=== PATIENT | male | born 1955 | race Caucasian/White ===

== ENCOUNTER 2018-08-05 07:44 | Outpatient (CLI) | payer OTHER ==
[2018-08-05] MEDS ORDERED: Iopamidol 370 76% 100 ML VIAL ONE (09:00)
--- NOTE | 2018-08-05 10:56 | CT ---
CT ABDOMEN AND PELVIS WITH IV CONTRAST: Date: 08/05/18 HISTORY: Lymphadenopathy. Elevated PSA (5.28 on 04/24/18). Negative prostate biopsy from 12/12/17. FINDINGS: Correlation made with MRI pelvis of 06/18/18. There is a calcified granuloma in the right lung base.There are a few tiny capsular calcifications in the spleen. The liver, pancreas, adrenal glands, and kidneys are normal. There are parapelvic cysts in the left kidney. No free air, free fluid, or lymphadenopathy seen. The largest left paraaortic lym ph node measures 8.0 mm. Prominent left inguinal lymph nodes are seen, measuring 1.5 cm on the right and 1.0 cm on the left. There are vascular calcifications without evidence of aneurysmal dilatation o f the abdominal aorta. No free air or free fluid is seen in the abdomen or pelvis. The prostate is en larged. There is sigmoid diverticulosis. There are mild degenerative changes in the spine. IMPRESSION: 1. 8.0 mm left paraaortic lymph node, 1.5 cm right inguinal lymph node, and a 1.0 cm left inguinal l ymph node. 2. Sigmoid diverticulosis. 3. Prostatic enlargement. POS: [facility]
== END 2018-08-05 07:45 | disposition home or self-care (01) ==
LOC: NAV CT 07:44
PROVIDERS: ATTEND Urology
DX: Z01.812 Encounter for preprocedural laboratory examination (principal); R59.1 Generalized enlarged lymph nodes; K57.30 Diverticulosis of large intestine without perforation or abscess without bleeding; N40.0 Benign prostatic hyperplasia without lower urinary tract symptoms
CPT/HCPCS: 74177

== ENCOUNTER 2018-11-28 09:40 | Outpatient (CLI) | payer BC, OTHER ==
[2018-11-28 11:41] LABS: #Eosinphils 0.1 thou/uL (0.0-0.7); #Lymphocytes 1.7 thou/uL (1.20-3.40); #Monocytes 0.5 thou/uL (0.11-0.59); #Neutrophils 3.5 thou/uL (1.40-6.50); %Basophils 0.4 % (0.0-1.0); %Lymphocytes 28.8 % (21.0-51.0); %Monocytes 8.4 % (0.0-10.0); %Neutrophils 60.5 % (42.0-75.0); Hemoglobin 15.6 g/dL (14.0-18.0); Mean Corpuscular HGB CONC 33.3 g/dL (32.0-36.0); Mean Corpuscular Hemoglobin 29.9 pg (27.0-31.0); Mean Corpuscular Volume 89.9 fL (78.0-98.0); Mean Platelet Volume 8.1 fL (7.4-10.4); Platelet Count 214 thou/uL (130-400); RBC Distribution Width 11.6 % (11.5-14.5); Red Blood Cell (RBC) Count 5.21 mill/uL (4.70-6.10); White Blood Cell (WBC) Count 5.8 thou/uL (4.8-10.8)
[2018-11-28 11:53] LABS: ALT (SGPT) 20 U/L (8-55); AST (SGOT) 20 U/L (5-34); Albumin 4.4 g/dL (3.4-4.8); Alkaline Phosphatase 57 U/L (40-150); Anion Gap 13 mmol/L (10-20); BUN (Urea Nitrogen) 15 mg/dL (8.4-25.7); Bilirubin, Total 0.5 mg/dL (0.2-1.2); Calc. Creatinine Clearance 0 mL/min (70-130); Calcium 9.9 mg/dL (7.8-10.44); Carbon Dioxide 29 mmol/L (23-31); Chloride 102 mmol/L (98-107); Estimated GFR-MDRD 74; Globulin 2.7 g/dL (2.4-3.5); Glucose 107 mg/dL (80-115); Protein, Total 7.1 g/dL (5.8-8.1); Sodium 140 mmol/L (136-145)
== END 2018-11-28 09:41 | disposition home or self-care (01) ==
LOC: NAV LAB 09:40
PROVIDERS: ATTEND Nurse Practitioner Adult Health
DX: R10.2 Pelvic and perineal pain (principal)
CPT/HCPCS: 80053; 85025; 87086

== ENCOUNTER 2019-07-26 09:01 | Outpatient (CLI) | payer BC ==
[2019-07-26 15:02] LABS: Bacteria/HPF None Seen HPF (None Seen); Bilirubin Negative (Negative); Blood, Urine Negative (Negative); Clarity Clear (Clear); Glucose, Urine (Dipstick) Normal (Negative); Leukocyte Negative Leu/uL (Negative); Nitrite Negative (Negative); Protein, Urine (Dipstick) Negative (Neg-Trace); RBC/HPF 0-3 HPF (0-3); Squamous Epithelial None Seen HPF (0-3); Urobilinogen Normal mg/dL (Less than 2); WBC/HPF 0-3 HPF (0-3)
== END 2019-07-26 09:02 | disposition home or self-care (01) ==
LOC: NAV LABSP 09:01
PROVIDERS: ATTEND Urology
DX: H93.19 Tinnitus, unspecified ear (principal); H65.90 Unspecified nonsuppurative otitis media, unspecified ear; F41.1 Generalized anxiety disorder
CPT/HCPCS: 81001; 84153; 87086

== ENCOUNTER 2019-08-13 16:16 | Outpatient (CLI) | payer BC ==
--- NOTE | 2019-08-13 16:37 | RAD ---
EXAM: 5 views of the cervical spine HISTORY: Neck and shoulder pain COMPARISON: None FINDINGS: AP, lateral, oblique, and open mouth odontoid views of the cervical spine shows normal heig ht and alignment of the vertebral bodies without fracture or subluxation. Moderate degenerative changes are seen throughout the cervical spine with intervertebral disc space narrowing and osteophyt e formation. No prevertebral soft tissue swelling is seen. IMPRESSION: Moderate degenerative changes of the cervical spine
== END 2019-08-13 16:17 | disposition home or self-care (01) ==
LOC: NAV RAD 16:16
PROVIDERS: ATTEND Student in an Organized Health Care Education/Training Program
DX: S16.1XXA Strain of muscle, fascia and tendon at neck level, initial encounter (principal); M25.519 Pain in unspecified shoulder; M54.2 Cervicalgia; M47.812 Spondylosis without myelopathy or radiculopathy, cervical region
CPT/HCPCS: 72050

== ENCOUNTER 2020-02-20 08:26 | Outpatient (CLI) | payer BC, OTHER ==
--- NOTE | 2020-02-20 10:37 | RAD ---
CERVICAL SPINE FIVE VIEWS: 02/20/2020 HISTORY: Neck pain. COMPARISON: None. FINDINGS: There is degenerative change at the atlantoaxial interspace. There is disk space narrowing with degen erative endplate change as well as anterior and posterior osteophyte formation at C4-C5 and C5-C6. Op en-mouth odontoid view is grossly unremarkable. Flexion and extension imaging is provided. On the flexion imaging, no significant anterolisthesis or retrolisthesis is noted. There is mild retrolisthesis at C4-C5 on the extension imaging, measuring 2-3 mm. IMPRESSION: 1. Multilevel cervical spine degenerative change, as detailed above. 2. Mild retrolisthesis on extension imaging at C4-C5, as detailed above. POS: [facility]
== END 2020-02-20 08:27 | disposition home or self-care (01) ==
LOC: NAV RAD 08:26
PROVIDERS: ATTEND Neurological Surgery
DX: M47.22 Other spondylosis with radiculopathy, cervical region (principal); M43.12 Spondylolisthesis, cervical region
CPT/HCPCS: 72050

== ENCOUNTER 2020-04-30 18:08 | Emergency (ER) | payer BC, OTHER ==
--- NOTE | 2020-04-30 19:40 | CT ---
CT BRAIN 04/30/20 PROVIDED CLINICAL HISTORY: Sinus infection, headache. FINDINGS: Comparison 01/04/20. The ventricular system is unchanged in size and morphology. There is no evidence for intracranial hem orrhage or mass effect. The extracranial soft tissues and osseous structures demonstrates an unremark able CT appearance. There is no significant paranasal sinus opacification with incompletely visualiza tion of the maxillary sinuses. IMPRESSION: No evidence for intracranial hemorrhage or mass effect. POS: [facility]
--- NOTE | 2020-04-30 19:58 | CT ---
CT PARANASAL SINUSES 04/30/20 PROVIDED CLINICAL HISTORY: Sinus infection. FINDINGS: The paranasal sinuses are free of significant opacity. The mastoid air cells appear clear. The globes and other orbital contents appear normal. IMPRESSION: No significant paranasal sinus mucosal disease. POS: [facility]
[2020-04-30] MEDS ORDERED: diphenhydrAMINE 50 MG/ML VIAL ONE (20:19)
[2020-04-30] MEDS ORDERED: Metoclopramide HCl 10 MG/2 ML VIAL ONE (20:19)
== END 2020-04-30 20:48 | disposition home or self-care (01) ==
LOC: NAV ERS 18:08
DX: G43.909 Migraine, unspecified, not intractable, without status migrainosus (principal); I10 Essential (primary) hypertension; Z79.899 Other long term (current) drug therapy
CPT/HCPCS: 70450; 96372; J1200; J2765

== ENCOUNTER 2022-02-27 | Outpatient (CLI) | payer MEDICARE | END 2022-02-27 09:34 | disposition home or self-care (01) | DX: M25.551 Pain in right hip (principal); M25.552 Pain in left hip; M54.50 Low back pain, unspecified | CPT/HCPCS: 72100 ==

== ENCOUNTER 2022-05-20 23:07 | Emergency (ER) | payer MEDICARE ==
[2022-05-21] MEDS ORDERED: Ibuprofen 200 MG TAB ONE (00:04)
[2022-05-21] MEDS ORDERED: Sodium Chloride 0.9% 2,000 ML ONE (00:04)
== END 2022-05-21 01:55 | disposition home or self-care (01) ==
LOC: NAV ERS 23:07
DX: R51.9 Headache, unspecified (principal); I10 Essential (primary) hypertension; Z79.899 Other long term (current) drug therapy
CPT/HCPCS: 96360; 96361; J7050

== ENCOUNTER 2022-12-20 07:28 | Outpatient (CLI) | payer MEDICARE ==
[2022-12-20 08:08] LABS: Bilirubin Negative (Negative); Blood, Urine Negative (Negative); Clarity Clear (Clear); Glucose, Urine (Dipstick) Negative (Negative); Ketone, Urine Negative (Negative); Leukocyte Negative (Negative); Nitrite Negative (Negative); Protein, Urine (Dipstick) Negative (Neg-Trace); Specific Gravity, Urine 1.015 (1.005-1.030); Urobilinogen 0.2 mg/dL (Less than 2)
[2022-12-20 08:15] LABS: Bacteria/HPF None Seen HPF (None Seen); RBC/HPF None Seen HPF (0-3); Squamous Epithelial None Seen HPF (0-3); WBC/HPF None Seen HPF (0-3)
== END 2022-12-20 07:29 | disposition home or self-care (01) ==
LOC: NAV LAB 07:28
PROVIDERS: ATTEND Urology
DX: N40.1 Benign prostatic hyperplasia with lower urinary tract symptoms (principal); R97.20 Elevated prostate specific antigen [PSA]; Z80.42 Family history of malignant neoplasm of prostate; Z98.890 Other specified postprocedural states
CPT/HCPCS: 36415; 81001; 84153

== ENCOUNTER 2023-10-15 01:51 | Emergency (ER) | payer MEDICARE ==
[2023-10-15] MEDS ORDERED: Morphine 4 MG/ML VIAL ONE ×2 (02:33→03:55)
[2023-10-15] MEDS ORDERED: Promethazine HCl 25 MG/ML VIAL ONE (02:33)
[2023-10-15] MEDS ORDERED: Sodium Chloride 0.9% 1,000 ML ONE (02:33)
[2023-10-15 02:40] LABS: #Basophils 0.1 thou/uL (0.0-0.2); #Eosinphils 0.3 thou/uL (0.0-0.7); #Lymphocytes 2.1 thou/uL (1.20-3.40); #Monocytes 0.6 thou/uL (0.11-0.59); #Neutrophils 5.1 thou/uL (1.40-6.50); %Basophils 1.1 % (0.0-1.0); %Lymphocytes 25.3 % (21.0-51.0); %Monocytes 7.4 % (0.0-10.0); %Neutrophils 62.2 % (42.0-75.0); Hematocrit 47.3 % (42.0-52.0); Hemoglobin 16.1 g/dL (14.0-18.0); Mean Corpuscular HGB CONC 34.1 g/dL (32.0-36.0); Mean Corpuscular Hemoglobin 30.5 pg (27.0-31.0); Mean Corpuscular Volume 89.5 fl (78.0-98.0); Mean Platelet Volume 7.9 fL (7.4-10.4); Platelet Count 230 10x3/uL (130-400); RBC Distribution Width 11.4 % (11.5-14.5); Red Blood Cell (RBC) Count 5.28 mill/uL (4.70-6.10); White Blood Cell (WBC) Count 8.2 10x3/uL (4.8-10.8)
[2023-10-15 02:54] LABS: ALT (SGPT) 21 U/L (8-55); AST (SGOT) 14 U/L (5-34); Albumin 4.2 g/dL (3.4-4.8); Alkaline Phosphatase 55 U/L (40-110); Anion Gap 12 mmol/L (10-20); BUN (Urea Nitrogen) 20 mg/dL (8.4-25.7); Bilirubin, Total 0.6 mg/dL (0.2-1.2); Calc. Creatinine Clearance 0 mL/min (70-130); Calcium 9.3 mg/dL (7.8-10.44); Carbon Dioxide 28 mmol/L (23-31); Chloride 101 mmol/L (98-107); Estimated GFR 96; Glucose 111 mg/dL (80-115); Potassium 3.5 mmol/L (3.5-5.1); Protein, Total 7.2 g/dL (5.8-8.1); Sodium 137 mmol/L (136-145)
[2023-10-15 03:37] LABS: Bilirubin Negative (Negative); Blood, Urine Negative (Negative); Clarity Clear (Clear); Glucose, Urine (Dipstick) Negative (Negative); Ketone, Urine Negative (Negative); Leukocyte Negative (Negative); Nitrite Negative (Negative); Protein, Urine (Dipstick) Negative (Neg-Trace); Specific Gravity, Urine 1.015 (1.005-1.030); Urobilinogen 0.2 mg/dL (Less than 2); pH, Urine 6.5 (5.0-9.0)
[2023-10-15 03:38] LABS: Bacteria/HPF None Seen HPF (None Seen); CAUTI Indications for Culture Dysuria,urgency,freq; RBC/HPF None Seen HPF (0-3); Squamous Epithelial None Seen HPF (0-3); Urine Culture Reflex No No; WBC/HPF None Seen HPF (0-3)
[2023-10-15] MEDS ORDERED: Ketorolac Tromethamine 30 MG/ML VIAL ONE (06:36)
[2023-10-15] MEDS ORDERED: Iopamidol 370 76% 100 ML VIAL ONE (09:00)
== END 2023-10-15 06:50 | disposition home or self-care (01) ==
LOC: NAV ERS 01:51
DX: R10.9 Unspecified abdominal pain (principal); I10 Essential (primary) hypertension; Z79.899 Other long term (current) drug therapy
CPT/HCPCS: 74177; 80053; 81001; 85025; 96374; 96375; 96376; J1885; J2270; J2550; J7050; Q9967